=== PATIENT | female | born 1985 | race African-American/Black ===

== ENCOUNTER 2019-08-18 13:12 | Emergency (ER) | payer OTHER ==
[2019-08-18 13:37] VITALS: TEMP 97.9; BMI 37.8
--- NOTE | 2019-08-18 15:11 | PDOC ---
History of Present Illness - General Chief Complaint: Vaginal Bleeding Stated Complaint: 6 W PREG/VAG BLEEDING Time Seen by Provider: 08/18/19 14:59 History Source: Patient - History of Present Illness Timing/Duration: reports: intermittent Past History - Past Medical History Allergies/Adverse Reactions: Allergies Allergy/AdvReac Type Severity Reaction Status Date / Time No Known Allergies Allergy Verified 08/18/19 13:34 Home Medications: Ambulatory Orders Cephalexin Monohydrate [Keflex -] 500 mg PO BID #20 capsule 08/18/19 95/Iron Fum/Folic/Dha [ + Dha Combo Pack] 1 each PO DAILY #30 combo..pkg 08/18/19 - Psycho Social/Smoking Cessation Hx Smoking History: Never smoked Have you smoked in the past 12 months: No Information on smoking cessation initiated: No Hx Alcohol Use: No Drug/Substance Use Hx: No Review of Systems - Review of Systems Constitutional: No: Chills, Fever ABD/GI: Yes: Nausea. No: Vomiting, Abdominal cramping : No: Dysuria *Physical Exam - Vital Signs Last Vital Signs Temp Pulse Resp BP Pulse Ox 97.9 F 83 16 127/67 100 08/18/19 13:34 08/18/19 13:34 08/18/19 13:34 08/18/19 13:34 08/18/19 13:34 - Physical Exam General Appearance: Yes: Appropriately Dressed. No: Apparent Distress HEENT: positive: Normal Voice Neck: positive: Supple Respiratory/Chest: negative: Respiratory Distress Gastrointestinal/Abdominal: positive: Soft. negative: Tender Musculoskeletal: negative: CVA Tenderness Integumentary: positive: Dry, Warm Neurologic: positive: Fully Oriented, Alert, Normal Mood/Affect ED Treatment Course - LABORATORY CBC & Chemistry Diagram: 08/18/19 16:50 - RADIOLOGY Radiology Studies Ordered: Category Date Time Status TRANSVAGINAL US PREG [US] Stat Ultrasound 08/18/19 15:04 Ordered Medical Decision Making - Medical Decision Making 08/18/19 15:07 34 yo F, (s/p 1 stillborn and 1 spon AB), 6 weeks by dates, here with intermittent vaginal spotting for over 1 month. Was seen for her first appointment today and told to come to the ED. Denies any acute abdominal pain. Has been intermittently nauseous throughout the . No vomiting dysuria, fever or chills. see exam 1st trimester bleed r/o ectopic vs spon AB vs vag bleed in nl preg -jemma -T&S -UA -UD 08/18/19 16:22 Signed out to PANKAJ Nelson pending w/u Discharge - Discharge Information Problems reviewed: Yes Clinical Impression/Diagnosis: Vaginal bleeding in UTI (urinary tract infection) Qualifiers: Urinary tract infection type: acute cystitis Hematuria presence: with hematuria Qualified Code(s): N30.01 - Acute cystitis with hematuria Disposition: HOME - Additional Discharge Information Prescriptions: Cephalexin Monohydrate [Keflex -] 500 mg PO BID #20 capsule 95/Iron Fum/Folic/Dha [ + Dha Combo Pack] 1 each PO DAILY #30 combo..pkg - Follow up/Referral Referrals: Ninoska Kirkland MD [Primary Care Provider] - - Patient Discharge Instructions Patient Printed Discharge Instructions: DI for Hyperglycemia -- Adult Additional Instructions: drink plenty of fluids follow up with your doctor please take your insulin as prescribed. avoid high carb diet. Additional Instructions: * Please call your personal physician to report your Emergency Department visit and to report your progress, if any. * If there is no improvement in symptoms in 2 days call your physician. * Return to the Emergency Department for any worsening symptoms. - Post Discharge Activity Work/Back to School Note: Back to School
--- NOTE | 2019-08-18 16:32 | PDOC ---
*Physical Exam - Vital Signs Last Vital Signs Temp Pulse Resp BP Pulse Ox 97.9 F 83 16 127/67 100 08/18/19 13:34 08/18/19 13:34 08/18/19 13:34 08/18/19 13:34 08/18/19 13:34 - Physical Exam General Appearance: Yes: Appropriately Dressed Respiratory/Chest: positive: Lungs Clear, Normal Breath Sounds Extremity: positive: Normal Capillary Refill, Normal Inspection Integumentary: positive: Normal Color, Dry, Warm Neurologic: positive: Fully Oriented, Alert ED Treatment Course - LABORATORY CBC & Chemistry Diagram: 08/18/19 16:50 Medical Decision Making - Medical Decision Making patient UA + 1 leuks bacteria. will treat TVUS + IUP Beta > [id number] Discharge - Discharge Information Problems reviewed: Yes Clinical Impression/Diagnosis: Vaginal bleeding in UTI (urinary tract infection) Qualifiers: Urinary tract infection type: acute cystitis Hematuria presence: with hematuria Qualified Code(s): N30.01 - Acute cystitis with hematuria Disposition: HOME - Additional Discharge Information Prescriptions: Cephalexin Monohydrate [Keflex -] 500 mg PO BID #20 capsule 95/Iron Fum/Folic/Dha [ + Dha Combo Pack] 1 each PO DAILY #30 combo..pkg - Follow up/Referral Referrals: Ninoska Kirkland MD [Primary Care Provider] - - Patient Discharge Instructions Patient Printed Discharge Instructions: DI for Vaginal Bleeding During Additional Instructions: 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 * If there is no improvement in symptoms in 2 days call your physician. * Return to the Emergency Department for any worsening symptoms. - Post Discharge Activity Work/Back to School Note: Back to School
[2019-08-18 18:33] LABS: BASO % 0.7 % (0-2.0); EOS % 3.7 % (0-4.5); HEMATOCRIT 40.1 % (32.4-45.2); HEMOGLOBIN 13.2 GM/dL (10.7-15.3); LYMPH % 26.3 % (8-40); MCH 28.1 pg (25.7-33.7); MEAN CELL VOLUME 85.2 fl (80-96); MEAN PLT VOLUME 8.3 fl (7.5-11.1); MONO % 7.1 % (3.8-10.2); NEUT % 62.2 % (42.8-82.8); PLATELET COUNT 274 K/MM3 (134-434); RBC 4.71 M/mm3 (3.60-5.2); RDW 13.8 % (11.6-15.6)
[2019-08-18 20:10] LABS: EPI CELLS 15.8 /HPF (0-5/HPF); HYALINE CASTS 19 /lpf (0-8); PH,URINE 5.5 (5.0-8.0); URINE APPEARANCE CLOUDY; URINE BACTERIA 920.8 /hpf (NEGATIVE); URINE BILIRUBIN NEGATIVE (NEGATIVE); URINE COLOR YELLOW; URINE GLUCOSE (UA) NEGATIVE (NEGATIVE); URINE KETONE NEGATIVE (NEGATIVE); URINE LEUK ESTERASE 2+ (NEGATIVE); URINE NITRITE NEGATIVE (NEGATIVE); URINE PROTEIN NEGATIVE (NEGATIVE); URINE RBC 2 /hpf (0-4); URINE WBC 51 /hpf (0-5)
[2019-08-18 21:46] VITALS: BP 130/67; PULSE 80
== END 2019-08-18 21:49 | disposition home or self-care (01) ==
LOC: JER 13:12
DX: N30.01 Acute cystitis with hematuria (principal); N93.9 Abnormal uterine and vaginal bleeding, unspecified
CPT/HCPCS: 36415; 76817-TC; 81003; 84702; 85025; 86850; 86900; 86901; 99282-25

== ENCOUNTER 2020-03-19 23:35 | Inpatient (IN) | payer OTHER ==
--- NOTE | 2020-03-20 01:09 | PD.OB.PROG ---
Past Medical History - Primary Care Physician PCP:: Clari Welsh Documenting Provider Type: Attending - Admission Chief Complaint: 34 yrs 37.2/7 wks iup with previous c/sx3 , c/o cramping since afternoon at work, more frequent & intense now. pt states she has not been drinking enough fluids . c/o burning urination & itching around perineum History of Present Illness: pnc at [address] [place] [address] panel : 08/31/19 pap nilm, non 16/18 HR hpv pos , gc/ct neg. 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 Weeks Gestation by Dates: 37.2 ...EDC by Dates: 04/06/20 ...EDC by Sono: 04/06/20 Heme/Onc: Denies/None Infectious Disease: Other (h/o non HRHPV pos) Psych: Denies/None Musculoskeletal: Denies/None Rheumatology: Denies/None ENT: Denies/None Endocrine: Denies/None Dermatology: Denies/None - Past Surgical History Past Surgical History: Yes: None, (09/2006, 08/2008, ) Additional Surgical History: h/o bilateral breast reduction in 2007 [facility] hosp - Smoking History Smoking history: Never smoked Have you smoked in the past 12 months: No - Alcohol/Substance Use Hx Alcohol Use: No History of Substance Use: reports: None - Social History ADL: Independent Review of Systems - Review of Systems Constitutional: reports: No Symptoms Eyes: reports: No Symptoms HENT: reports: No Symptoms Neck: reports: No Symptoms Cardiovascular: reports: No Symptoms Respiratory: reports: No Symptoms Gastrointestinal: reports: No Symptoms Genitourinary: reports: Burning, Other (pruritis in perinel area) Breasts: reports: No Symptoms Reported Musculoskeletal: reports: No Symptoms Integumentary: reports: No Symptoms Neurological: reports: No Symptoms Endocrine: reports: No Symptoms Hematology/Lymphatic: reports: No Symptoms Psychiatric: reports: No Symptoms Pain Intensity: 5 Physical Exam - Obstetrical Vital Signs: Vital Signs Temperature 98.3 F 03/20/20 00:45 Pulse Rate 88 03/20/20 00:45 Respiratory Rate 20 03/20/20 00:45 Blood Pressure 117/69 03/20/20 00:45 O2 Sat by Pulse Oximetry (%) Selected Entries 03/20/20 02:38 Weight 223 lb Constitutional: Yes: No Distress, Obese Eyes: Yes: WNL HENT: Yes: WNL Neck: Yes: WNL Cardiovascular: Yes: WNL Lungs: Clear to auscultation Breast(s): Yes: Other (s/p bilat breast reduction surgery scars , scars are wide, Lt breast nipple not visualised,hypopigmentation around nipplein areolar area .) - Abdominal Exam/OB Fundal Height: 38 Number of Fetuses: Single Presentation: Vertex Contractions: Yes Regularity: Regular (2-4 min) Intensity: Mild Monitor Mode: External Heart Rate (range): 150 Heart Rate Location: [facility] Category: I Accelerations: Non-Uniform Decelerations: None - Vaginal Exam/OB Vaginal Exam Deferred: Yes Vaginal Bleeding: No Speculum Exam: No Dilatation (cm): close Effacement (%): unefface Amniotic Membrane Status: Intact Presentation: Vertex/Position Station: -3 - Physical Exam Musculoskeletal: Yes: WNL Extremities: Yes: WNL. No: Calf Tenderness Edema: LLE: 1+, RLE: 1+ Integumentary: Yes: WNL, Incision (pfannensteil scar), Other (eczematous dermatitis in both fingers) Deep Tendon Reflex Grade: Normal +2 ...Motor Strength: WNL Psychiatric: Yes: WNL - Labs Lab Results: Laboratory Tests 03/20/20 03/20/20 03/20/20 04:30 04:30 04:30 WBC 8.8 Hgb 12.4 Plt Count 213 D PT with INR 11.40 INR 0.97 PTT (Actin FS) 29.6 Sodium 140 Potassium 3.8 Chloride 110 H Carbon Dioxide 22 Anion Gap 8 BUN 3.6 L Creatinine 0.6 Random Glucose 93 Calcium 8.3 L Blood Type Antibody Screen 03/20/20 04:30 WBC Hgb Plt Count PT with INR INR PTT (Actin FS) Sodium Potassium Chloride Carbon Dioxide Anion Gap BUN Creatinine Random Glucose Calcium Blood Type O POSITIVE Antibody Screen Pending Problem List - Problems (1) with 37 weeks completed gestation Code(s): Z3A.37 - 37 WEEKS GESTATION OF (2) Previous section Code(s): Z98.891 - HISTORY OF UTERINE SCAR FROM PREVIOUS SURGERY (3) Threatened premature labor in third trimester Code(s): O47.03 - FALSE LABOR BEFORE 37 COMPLETED WEEKS OF GEST, THIRD TRI Assessment/Plan 34 yrs , 37.2 wks , previous c/s x3 with reg uc , no dilatation or effacement , possible threatened late PTL r/o uti , check U/A h/o BV pos 03/08/20 , declines receiving any meds for it Plan U/A IV hydration If UC cease, will discharge IF UC continues inspite of hydration will deliver by Repeat C/Section. she has signed papers for BTL pt continue to have UC , admit the patient
[2020-03-20 01:46] LABS: EPI CELLS 16 /uL (0-25.1); HYALINE CASTS 1 /uL (0-3.1); PH,URINE 8.5 (5.0-8.0); URINE APPEARANCE CLEAR; URINE BACTERIA 246 /uL (0-1359); URINE BILIRUBIN NEGATIVE (NEGATIVE); URINE COLOR YELLOW; URINE GLUCOSE (UA) NEGATIVE (NEGATIVE); URINE KETONE NEGATIVE (NEGATIVE); URINE LEUK ESTERASE TRACE (NEGATIVE); URINE NITRITE NEGATIVE (NEGATIVE); URINE PROTEIN NEGATIVE (NEGATIVE); URINE RBC 2 /uL (0-23.9); URINE WBC 5 /uL (0-25.8)
[2020-03-20] MEDS ORDERED: ELECTROLYTE-148 SOLN 500 ML IV ONE (04:33)
--- NOTE | 2020-03-20 04:33 | PN ---
Progress Note (short form) - Note Progress Note: patient continue to have UC in spite of hydration FHR 140-150 BPM , cat-1 plan .Admit pt notified r/b/a explained ,not ltd to injury bladder, bowel, ureter, adhesions, possible no access to tubes , hemorrhage , pt agrees repeat c/section btl consent & preop done Problem List - Problems (1) with 37 weeks completed gestation Code(s): Z3A.37 - 37 WEEKS GESTATION OF (2) Previous section Code(s): Z98.891 - HISTORY OF UTERINE SCAR FROM PREVIOUS SURGERY (3) Threatened premature labor in third trimester Code(s): O47.03 - FALSE LABOR BEFORE 37 COMPLETED WEEKS OF GEST, THIRD TRI
[2020-03-20 04:37] LABS: BASO % 0.6 % (0-2.0); EOS % 2.5 % (0-4.5); HEMATOCRIT 37.2 % (32.4-45.2); HEMOGLOBIN 12.4 GM/dL (10.7-15.3); MCHC 33.4 g/dl (32.0-36.0); MEAN CELL VOLUME 83.8 fl (80-96); MEAN PLT VOLUME 6.8 fl (7.5-11.1); MONO % 12.9 % (3.8-10.2); PLATELET COUNT 213 K/MM3 (134-434); RBC 4.44 M/mm3 (3.60-5.2); RDW 14.4 % (11.6-15.6); WHITE BLOOD COUNT 8.8 K/mm3 (4.0-10.0)
[2020-03-20] MEDS ORDERED: CITRIC ACID/SODIUM CITRATE 30 ML UNIT-DOSE CUP PO ONE (04:40)
[2020-03-20] MEDS ORDERED: ELECTROLYTE-148 SOLN 1,000 ML IV SCH (04:45)
[2020-03-20 04:46] LABS: INR 0.97 (0.83-1.09); PROTHROMBIN TIME (PATIENT) 11.4 SEC (9.7-13.0)
[2020-03-20 04:49] LABS: ACTIVATED PTT 29.6 SECONDS (25.2-36.5)
[2020-03-20 05:03] LABS: BLOOD UREA NITROGEN 3.6 mg/dL (7-18); CALCIUM 8.3 mg/dL (8.5-10.1); CREATININE 0.6 mg/dL (0.55-1.3); POTASSIUM 3.8 mmol/L (3.5-5.1)
--- NOTE | 2020-03-20 05:17 | HP ---
Past Medical History - Primary Care Physician PCP:: Clari Welsh - Admission Chief Complaint: 34 yrs , 37.2 wks , previous c/sx3 , continue to have UC inspite of hydration , pt requests for repeat c/section & voluntory sterilization History of Present Illness: see ob progress note pnc at [address] [place] [address] panel : 08/31/19 pap nilm, non 16/18 HR hpv pos , gc/ct neg. 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 Weeks Gestation by Dates: 37.2 ...EDC by Dates: 04/06/20 ...EDC by Sono: 04/06/20 Heme/Onc: Yes: Other (none) Infectious Disease: Yes: Other (non 16/18 HR HPV Pos) Psych: No: Addictions, Anxiety, Bipolar, Depression, Panic, Psychosis, Schizophrenia, Other ENT: Yes: Other (none) Endocrine: Yes: Other (naveed) - Past Surgical History Past Surgical History: Yes: None, (09/2006, 08/2008, ) Hx Myomectomy: No Hx Transabdominal Cerclage: No Additional Surgical History: h/o bilateral breast reduction in 2007 [facility] hosp - Smoking History Smoking history: Never smoked Have you smoked in the past 12 months: No - Alcohol/Substance Use Hx Alcohol Use: No History of Substance Use: reports: None - Social History ADL: Independent Home Medications - Allergies Allergies/Adverse Reactions: Allergies Allergy/AdvReac Type Severity Reaction Status Date / Time No Known Allergies Allergy Verified 08/18/19 13:34 - Home Medications Home Medications: Ambulatory Orders 95/Iron Fum/Folic/Dha [ + Dha Combo Pack] 1 each PO DAILY #30 combo..pkg 08/18/19 Review of Systems - Review of Systems Eyes: reports: No Symptoms HENT: reports: No Symptoms Neck: reports: No Symptoms Cardiovascular: reports: No Symptoms Respiratory: reports: No Symptoms Gastrointestinal: reports: No Symptoms Genitourinary: reports: Burning, Other (perineal pruritis) Breasts: reports: Other (s/p bilateral breast reduction surgery) Musculoskeletal: reports: No Symptoms Integumentary: reports: Erythema Neurological: reports: No Symptoms Endocrine: reports: No Symptoms Hematology/Lymphatic: reports: No Symptoms Psychiatric: reports: No Symptoms Pain Intensity: 5 Physical Exam - Maternity Vital Signs: Vital Signs Temperature 98.3 F 03/20/20 00:45 Pulse Rate 88 03/20/20 00:45 Respiratory Rate 20 03/20/20 00:45 Blood Pressure 117/69 03/20/20 00:45 O2 Sat by Pulse Oximetry (%) Constitutional: Yes: No Distress, Obese Eyes: Yes: WNL HENT: Yes: WNL Neck: Yes: WNL Cardiovascular: Yes: WNL Breast(s): Yes: Other (s/p breast reduction surgery scars . rt nipple seen Lt breast nipple not visualized, hypopigmentation around nipple area on lt breast.) - Abdominal Exam/OB Fundal Height: 38 Number of Fetuses: Single Presentation: Vertex Contractions: Yes Regularity: Regular Intensity: Mild/Mod (3-4 min) Monitor Mode: External Heart Rate (range): 140-150 Heart Rate Location: [facility] Category: I Accelerations: Non-Uniform Decelerations: None - Vaginal Exam/OB Vaginal Bleeding: No Speculum Exam: No Dilatation (cm): close Effacement (%): unefface Amniotic Membrane Status: Intact Presentation: Vertex/Position Station: -3 - Physical Exam Musculoskeletal: Yes: WNL Extremities: Yes: WNL. No: Calf Tenderness Edema: LLE: 1+, RLE: 1+ Integumentary: Yes: Incision (pfannensteil scar), Other (eczematous dermatitis on both hands fingers) Deep Tendon Reflex Grade: Normal +2 ...Motor Strength: WNL Psychiatric: Yes: WNL - Labs Lab Results: CBC, BMP 03/20/20 04:30 03/20/20 04:30 Laboratory Tests 03/20/20 03/20/20 04:30 04:30 PT with INR 11.40 INR 0.97 PTT (Actin FS) 29.6 Blood Type O POSITIVE Antibody Screen Negative Hemorrhage Risk Assessment - Risk Factors Medium Risk Factors: Yes: Prior , uterine surgery,or multiple laparotomies Risk Score: 1 Risk Level: Medium Risk Problem List - Problems (1) with 37 weeks completed gestation Code(s): Z3A.37 - 37 WEEKS GESTATION OF (2) Previous section Code(s): Z98.891 - HISTORY OF UTERINE SCAR FROM PREVIOUS SURGERY (3) Threatened premature labor in third trimester Code(s): O47.03 - FALSE LABOR BEFORE 37 COMPLETED WEEKS OF GEST, THIRD TRI (4) Multiparity, grand, in labor and delivery Code(s): O09.40 - SUPERVISION OF W GRAND MULTIPARITY, UNSP TRIMESTER Assessment/Plan 34 yrs , 37.2 wks , previous c/s x3 with reg uc , no dilatation or effacement , possible threatened late PTL r/o uti , check U/A h/o BV pos 03/08/20 , declines receiving any meds for it Plan U/A IV hydration If UC cease, will discharge IF UC continues in spite of hydration will deliver by Repeat C/Section. she has signed papers for BTL pt continue to have UC , admit the patient see complete OB progress note for admission plan repeat c/section BTL
[2020-03-20] MEDS ORDERED: morphine SULFATE/PF 0.5 MG/ML (2cc Syringe - QUVA) ONE (05:38)
[2020-03-20 05:39] VITALS: BMI 37.0
[2020-03-20] MEDS ORDERED: AMPICILLIN SODIUM 2 GM VIAL ONE (05:57)
[2020-03-20] MEDS ORDERED: AMPICILLIN - 2 GM in SODIUM CHLORIDE 100 ML IVPB ONE (06:00)
[2020-03-20] MEDS ORDERED: OXYTOCIN 20 UNITS in 0.9% NS 40 UNIT/2,000 ML INFUS.BAG IV ONE (07:48)
--- NOTE | 2020-03-20 08:26 | PN ---
Progress Note (short form) - Note Progress Note: we were ready to take the pt to OR at 5.30 AM , we were bumped by another emergency c/section due to non reassuring FHR So c/s was pending until OR available uc 2-4 min dysfunctional. fhr 130-140 cat-1 pt taken to OR at 8.25 AM Problem List - Problems (1) with 37 weeks completed gestation Code(s): Z3A.37 - 37 WEEKS GESTATION OF (2) Previous section Code(s): Z98.891 - HISTORY OF UTERINE SCAR FROM PREVIOUS SURGERY (3) Pain during labor Code(s): O99.89 - OTH DISEASES AND CONDITIONS COMPL PREG/CHLDBRTH; R52 - PAIN, UNSPECIFIED
[2020-03-20] MEDS ORDERED: MIDAZOLAM HCL 2 MG/2 ML SINGLE DOSE VIAL ONE (09:10)
[2020-03-20 09:28] LABS: CORD PCO2 64.8 mmHg (30-78)
[2020-03-20 09:29] LABS: CORD BASE EXCESS -1.1 mmol/L (0-2); CORD HCO3 26.8 mmHg (20-29); CORD PCO2 58.5 mmHg (30-78); CORD pH 7.279 (7.14-7.44)
[2020-03-20] MEDS ORDERED: METHYLERGONOVINE MALEATE 0.2 MG/1 ML AMP IM PRN (10:06)
[2020-03-20] MEDS ORDERED: IBUPROFEN 800 MG/8 ML IJ IVPB PRN (10:06)
--- NOTE | 2020-03-20 10:18 | OP ---
Operative Note - Note: Operative Date: 03/20/20 Pre-Operative Diagnosis: 37.2 weks , previous c/sx3 in labor & multiparity Operation: Repeat LFTC/Section BTL Findings: 8.51 AM, baby Boy, vx ROT, 9/9 , 7'5" . financial service professional in the room meconium stained light to moderate , cord around head both tubes & ovaries normal. mid portion of ampular region of the tubes ligated & cut by modified mary method Surgeon: Clari Welsh Material Requirements Planning Manager: Sebastian Glover Anesthesiologist/COMPRESSION MOLDING MACHINE SETTER: Ignacio Swanson Anesthesia: Spinal Specimens Removed: cord segment for cord gas. cord blood. placenta Estimated Blood Loss (mls): 1,000 Drains, Volume Out (mls): 200 (mary color , bach output) Fluid Volume Replaced (mls): 1,000 Operative Report Dictated: Yes
--- NOTE | 2020-03-20 10:36 | PN ---
Delivery - Delivery Section: Repeat, Low Flap Transverse (Indication :Previous c/sx3 Multiparity in labor) Type of Anesthesia: Spinal Episiotomy/Laceration: None EBL (cc): 1,000 (bach output 200 ml mary color ) Delivery, Single - Stages of Labor Date 1st Stage Initiatied: 03/20/20 Time 1st Stage Initiated: 02:30 Date of Delivery: 03/20/20 Time of Delivery: 08:51 Time Placenta Delivered: 08:53 Placenta: Yes: Manual Removal, Uterine Exploration - Condition of Infant Supervisor Sterile Processing/Dipping Machine Operator Present: Yes Name: Brenda Sorto Infant Gender: Male Weight: 7 lb 5 oz Position: Right, OT (cord around the head) Total Hours ROM (Hrs/Mins): 1 min meconilum moderate - 1 Minute Total Score: 9 5 Minutes Total Score: 9 - [place] Feeding Plan Initial Plan: Elected not to breastfeed exclusively throughout hospitalization Remarks - Remarks Remarks: 34 yrs , 37.2 weeks , previous c/s x3 in labor GBS pos PNC at [address] [place] [address] UC did not stop after Iv hydration hence decision to deliver the patient by rc/s taken Iv Ampicillin 2gm ivpb one dose given In OR 2 gm IV Ancef ivpb given intraop course uneventful
[2020-03-20] MEDS ORDERED: ONDANSETRON 4 MG/2 ML VIAL IVPUSH PRN ×2 (11:05→11:06)
[2020-03-20] MEDS ORDERED: morphine SULFATE/PF 0.5 MG/ML (2cc Syringe - QUVA) EP ONE (11:06)
[2020-03-20] MEDS ORDERED: ACETAMINOPHEN INJECTION 100 ML IVPB ONE (13:32)
[2020-03-20] MEDS ORDERED: ACETAMINOPHEN 1000 MG/100 ML VIAL (NON FORMULARY) IVPB ONE (14:00)
--- NOTE | 2020-03-20 14:04 | OP ---
DATE OF CONSULTATION: 03/20/2020 PREOPERATIVE DIAGNOSIS: A 37.2 weeks, previous section x3, in labor, and multiparity. POSTOPERATIVE DIAGNOSIS: A 37.2 weeks, previous section x3, in labor, and multiparity. OPERATION DONE: Repeat low flap transverse section, bilateral tubal ligation. SURGEON: Clari Welsh MD CAMERA TECHNICIAN SURGEON: EROS Lee ANESTHESIOLOGIST: Ignacio Swanson MD MARINE DIESEL TECHNICIAN: Brenda Sorto FINDINGS: This is a 34-year-old 5, para 2-1-1-2, history of previous C-sections, history of 1 at 32 weeks, a stillborn baby, and patient's EDC is April 06. She came at 37.2 weeks with contractions. In spite of giving IV hydration, contractions did not stop. Patient continued to have contractions and getting stronger, though there was no change in the cervix. It was closed. So, the patient was taken for surgery, and she also requests for voluntary sterilization. PROCEDURE: Abdomen was shaved, prepped. Bourgeois catheter was placed. She was taken to the operating room table, and spinal anesthesia was given. She was placed in the supine position with a tilt to the left. Abdomen was painted and draped in usual manner, and then the Pfannenstiel incision was made through a previous scar in skin and subcutaneous tissue. Anterior rectus sheath was incised transversely. Bleeding points were clamped and cauterized. Rectus muscle was from the rectus sheath. Parietal peritoneum was opened vertically. There were no adhesions, and the lower uterine segment was isolated. It was incised transversely. Amniotic fluid was meconium stained, and cord was around the baby's head, which was released, and the baby was delivered at 8:51 a.m. from ROT position. Apgars were 9/9. Cord was clamped/cut. Cord segment was sent for the cord blood gases. Cord blood was collected. Placenta was removed completely with the membranes intraoperatively. Uterus was soft, and then anesthesiologist was asked to give IM Methergine intraoperatively and continued IV Pitocin 20 units. Then, the uterine cavity was cleaned, and uterine incision was closed with 2 layers with Biosyn 0 suture. At this point, the bladder was intact. Urine in the Bourgeois bag was mary color. Both tubes and ovaries were normal. Then, first the left side then the right side tube was ligated doubly with 2-0 plain catgut, and the portion of the tube above the ligature was cut, and the endosalpinx was cauterized. Same procedure done on both sides, and the portion of the tubes was sent for the pathology examination. Incidentally, open LigaSure was not available, so salpingectomy could not be done. The uterus was placed back into the peritoneal cavity. Sponge, instrument, needle count was correct. Irrigation was done. Again, the surgical site on the tubes from both sides was identified. Hemostasis was verified once again, and then closure of the abdomen was done. Posterior rectus sheath and the parietal peritoneum was closed together with Vicryl O suture. Care was taken the bladder was displaced before taking the sutures, and then INTERCEED was placed in the incision area. The muscles were approximated together with Vicryl 0 suture underneath the rectus sheath flap. Hemostasis was verified. Skin was mobilized from the rectus sheath flaps from adherent scar, and then anterior rectus sheath was closed with a Vicryl 0 suture. Continuous sutures were taken. The subcutaneous tissue was approximated with 2-0 Vicryl suture. Continuous suture was taken. Then, the skin was approximated with dano. Pressure dressing was given, then the blood clots were removed from the vagina, and the irrigation with the Betadine was done. Patient tolerated the procedure well, and she was transferred to the recovery room in stable condition. Estimated blood loss was 1000 mL. Intraoperative IV fluid 1000 mL was given, and she had 200 mL of mary-colored urine output in the OR. She received 2 g of IV Ancef intraoperatively. Jayne [id number]
[2020-03-20] MEDS: OXYTOCIN 20 UNITS in 0.9% NS 20 UNIT/1,000 ML INFUS.BAG IV SCH ×2 (14:19→22:46)
[2020-03-20] MEDS: LACTATED RINGERS SOLUTION 1,000 ML IV SCH ×2 (14:30→19:04)
[2020-03-20] MEDS: CEFAZOLIN 1 GM/D5W 1 GM/50 ML BAG IVPB SCH (17:56)
[2020-03-20] MEDS: ENOXAPARIN NA (PORCINE) 40 MG/0.4 ML DISP.SYRIN SQ SCH (21:45)
[2020-03-21] MEDS: CEFAZOLIN 1 GM/D5W 1 GM/50 ML BAG IVPB SCH ×2 (01:07→09:02)
[2020-03-21] MEDS: IBUPROFEN 600 MG TABLET (FP) PO PRN ×3 (04:38→21:31)
[2020-03-21] MEDS: ACETAMINOPHEN 325 MG TABLET (FP) PO PRN ×5 (04:38→21:32)
[2020-03-21] MEDS: SIMETHICONE 80 MG TAB.CHEW (FP) PO PRN ×5 (04:39→21:31)
--- NOTE | 2020-03-21 06:35 | PN ---
Post Progress Note Type of Delivery: Repeat C/S Vital Signs: Vital Signs Temperature 98.1 F 03/21/20 06:00 Pulse Rate 90 03/21/20 06:00 Respiratory Rate 18 03/21/20 06:00 Blood Pressure 122/74 03/21/20 06:00 O2 Sat by Pulse Oximetry (%) 98 03/21/20 06:00 Uterus: Yes: Fundus below umbilicus Incision: Yes: Dressing dry and intact Abdomen/GI: Yes: Abdomen soft Lochia: Yes: Rubra Perineum: Yes: Intact Activity: Ambulating - Labs Labs: CBC WBC 8.8 K/mm3 (4.0-10.0) 03/20/20 04:30 RBC 4.44 M/mm3 (3.60-5.2) 03/20/20 04:30 Hgb 12.4 GM/dL (10.7-15.3) 03/20/20 04:30 Hct 37.2 % (32.4-45.2) 03/20/20 04:30 MCV 83.8 fl (80-96) 03/20/20 04:30 MCH 28.0 pg (25.7-33.7) 03/20/20 04:30 MCHC 33.4 g/dl (32.0-36.0) 03/20/20 04:30 RDW 14.4 % (11.6-15.6) 03/20/20 04:30 Plt Count 213 K/MM3 (134-434) D 03/20/20 04:30 MPV 6.8 fl (7.5-11.1) L D 03/20/20 04:30 Absolute Neuts (auto) 5.5 K/mm3 (1.5-8.0) 03/20/20 04:30 Neutrophils % 62.0 % (42.8-82.8) 03/20/20 04:30 Lymphocytes % 22.0 % (8-40) 03/20/20 04:30 Monocytes % 12.9 % (3.8-10.2) H D 03/20/20 04:30 Eosinophils % 2.5 % (0-4.5) 03/20/20 04:30 Basophils % 0.6 % (0-2.0) 03/20/20 04:30 Nucleated RBC % 0 % (0-0) 03/20/20 04:30 Assessment/Plan 34yo s/p RLTCS, BTL, POD#1 Routine PP care, po pain control D/C [place] OOB, ambulate F/U AM labs D/C to home POD#3/4 Alphonse Zamora MD
[2020-03-21] MEDS: OXYTOCIN 20 UNITS in 0.9% NS 20 UNIT/1,000 ML INFUS.BAG IV SCH (07:32)
[2020-03-21] MEDS: ENOXAPARIN NA (PORCINE) 40 MG/0.4 ML DISP.SYRIN SQ SCH (09:11)
[2020-03-21] MEDS: oxyCODONE HCL 5 MG TABLET PO PRN ×4 (09:12→21:32)
[2020-03-21] MEDS: PRENATAL VITAMINS W/ FOLIC ACID TABLET (FP) PO SCH (10:00)
[2020-03-21 10:02] LABS: BASO % 0.3 % (0-2.0); EOS % 1.5 % (0-4.5); HEMATOCRIT 35.2 % (32.4-45.2); HEMOGLOBIN 11.4 GM/dL (10.7-15.3); LYMPH % 11.2 % (8-40); MCH 27.1 pg (25.7-33.7); MCHC 32.3 g/dl (32.0-36.0); MEAN CELL VOLUME 83.7 fl (80-96); MEAN PLT VOLUME 6.8 fl (7.5-11.1); MONO % 11.1 % (3.8-10.2); NEUT % 75.9 % (42.8-82.8); PLATELET COUNT 220 K/MM3 (134-434); RDW 14.5 % (11.6-15.6); WHITE BLOOD COUNT 13.4 K/mm3 (4.0-10.0)
[2020-03-21] MEDS ORDERED: BISACODYL 10 MG SUPP.RECT RC PRN (10:06)
[2020-03-21] MEDS: LACTATED RINGERS SOLUTION 1,000 ML IV SCH (19:55)
[2020-03-21] MEDS: FERROUS SO4 325 MG TABLET (FP) PO SCH (21:31)
[2020-03-21] MEDS: SENNOSIDES/DOCUSATE COMBO (SENNA PLUS) TABLET (UD) PO PRN (21:31)
[2020-03-22] MEDS: oxyCODONE HCL 5 MG TABLET PO PRN ×5 (01:26→22:29)
[2020-03-22] MEDS: ACETAMINOPHEN 325 MG TABLET (FP) PO PRN ×6 (01:26→22:27)
[2020-03-22] MEDS: SIMETHICONE 80 MG TAB.CHEW (FP) PO PRN ×5 (01:27→22:30)
[2020-03-22] MEDS: IBUPROFEN 600 MG TABLET (FP) PO PRN ×6 (01:27→22:28)
--- NOTE | 2020-03-22 06:48 | PN ---
Progress Note (short form) - Note Progress Note: pod 2 s/p repeat c/s, doing well, ambulating . passing gas Last Vital Signs Temp Pulse Resp BP Pulse Ox 98.4 F 91 H 18 118/80 98 03/21/20 22:00 03/21/20 22:00 03/21/20 22:00 03/21/20 22:00 03/21/20 22:00 CBC, BMP 03/21/20 09:10 03/20/20 04:30 abdomen soft, no distension, no cva uterus firm, non tender lochia mild plan ambulate cbc in am plan for d/c home in am
[2020-03-22] MEDS: FERROUS SO4 325 MG TABLET (FP) PO SCH ×2 (09:37→17:36)
[2020-03-22] MEDS: PRENATAL VITAMINS W/ FOLIC ACID TABLET (FP) PO SCH (09:40)
[2020-03-22] MEDS: ENOXAPARIN NA (PORCINE) 40 MG/0.4 ML DISP.SYRIN SQ SCH (09:41)
--- NOTE | 2020-03-22 13:38 | PATH ---
Surgical Pathology Report Patient Name: MC MONTES [facility]. Rec. 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 Specimen(s) Received A: PLACENTA B: FALLOPIAN TUBE, PORTION, RIGHT C: FALLOPIAN TUBE, PORTION, LEFT Clinical History , 37.2 weeks gestation 3 previous C-sections (1 stillborn at 32 weeks), 1-induced , breast reduction Final Diagnosis A. PLACENTA, SECTION: 499 G THIRD TRIMESTER PLACENTA WITH TRIVASCULAR UMBILICAL CORD AND UNREMARKABLE PLACENTAL MEMBRANES. B. FALLOPIAN TUBE, PORTION, RIGHT, PARTIAL EXCISION: FULL LUMINAL PORTION OF UNREMARKABLE FALLOPIAN TUBE. C. FALLOPIAN TUBE, PORTION, LEFT, PARTIAL EXCISION: FULL LUMINAL PORTION OF UNREMARKABLE FALLOPIAN TUBE. Electronically Signed Lilia Lawton M.D. Gross Description A. The specimen is received fresh labeled placenta and is a 499 gram, 20.0 x 18.0 x 2.2 cm. placenta with attached membranes and umbilical cord. The attached membranes are wilkins, translucent with focal opacities and insert marginally. The umbilical cord measures 17 cm. in length and averages 1.4 cm. in diameter. The cord inserts eccentrically, 6 cm. to the nearest margin. No true knots or strictures are identified. Cut surface of the umbilical cord reveals 3 vessels. The surface is agustin-blue with minimal fibrin deposition and appropriate caliber vessels. The maternal surface is red-brown with focal defects. Sectioning reveals red-brown, spongy parenchyma. No lesions are identified. Tub Operator sections are submitted in three cassettes as follows: 1- membrane rolls and umbilical cord; 2-3- full thickness sections of placenta. B. Received in formalin labeled "right portion of fallopian tube," is a 1.5 cm in length portion of fallopian tube. No fimbria are present. The outer surface is wilkins-pink and smooth. Sectioning reveals an unremarkable lumen. Tub Operator sections are submitted in one cassette. C. Received in formalin labeled "left portion of fallopian tube," is a 1.7 cm in length portion of fallopian tube. No fimbria are present. The outer surface is wilkins-pink and smooth. Sectioning reveals an unremarkable lumen. Tub Operator sections are submitted in one cassette. 03/21/2020 [facility]03/21/2020
[2020-03-22] MEDS: SENNOSIDES/DOCUSATE COMBO (SENNA PLUS) TABLET (UD) PO PRN (22:29)
[2020-03-23] MEDS: IBUPROFEN 600 MG TABLET (FP) PO PRN ×3 (02:29→10:57)
[2020-03-23] MEDS: ACETAMINOPHEN 325 MG TABLET (FP) PO PRN ×3 (02:30→10:57)
[2020-03-23] MEDS: oxyCODONE HCL 5 MG TABLET PO PRN ×2 (02:30→06:28)
[2020-03-23] MEDS: SIMETHICONE 80 MG TAB.CHEW (FP) PO PRN ×3 (02:31→10:57)
[2020-03-23] MEDS: FERROUS SO4 325 MG TABLET (FP) PO SCH (07:56)
[2020-03-23] MEDS: ENOXAPARIN NA (PORCINE) 40 MG/0.4 ML DISP.SYRIN SQ SCH (09:47)
[2020-03-23] MEDS: PRENATAL VITAMINS W/ FOLIC ACID TABLET (FP) PO SCH (09:47)
[2020-03-23 10:09] LABS: BASO % 0.6 % (0-2.0); EOS % 3.5 % (0-4.5); HEMATOCRIT 31.4 % (32.4-45.2); HEMOGLOBIN 10.4 GM/dL (10.7-15.3); LYMPH % 20.7 % (8-40); MCH 27.9 pg (25.7-33.7); MCHC 33.3 g/dl (32.0-36.0); MEAN CELL VOLUME 83.8 fl (80-96); MEAN PLT VOLUME 6.6 fl (7.5-11.1); MONO % 8.8 % (3.8-10.2); NEUT % 66.4 % (42.8-82.8); PLATELET COUNT 243 K/MM3 (134-434); RBC 3.74 M/mm3 (3.60-5.2); RDW 14.5 % (11.6-15.6); WHITE BLOOD COUNT 8.7 K/mm3 (4.0-10.0)
--- NOTE | 2020-03-23 10:46 | DS ---
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 Vital Signs: Vital Signs Temperature 98.4 F 03/22/20 22:00 Pulse Rate 81 03/22/20 22:00 Respiratory Rate 18 03/22/20 22:00 Blood Pressure 128/73 03/22/20 22:00 O2 Sat by Pulse Oximetry (%) 98 03/22/20 09:58 Constitutional: Yes: Well Nourished Eyes: Yes: Conjunctiva Clear HENT: Yes: Atraumatic Neck: Yes: Supple Cardiovascular: Yes: Regular Rate and Rhythm Respiratory: Yes: Regular Gastrointestinal: Yes: Normal Bowel Sounds Pelvis: Yes: WNL External Genitalia: Yes: Normal Vaginal Exam: Yes: Normal Cervix: Yes: Normal Uterus: Yes: Firm Wound/Incision: Yes: Well Approximated, [place] Intact Neurological: Yes: Alert, Oriented ...Motor Strength: WNL Psychiatric: Yes: Alert, Oriented Labs: CBC, BMP 03/23/20 09:46 03/20/20 04:30 Delivery - Delivery Section: Repeat, Low Flap Transverse (Indication :Previous c/sx3 Multiparity in labor) Type of Anesthesia: Spinal Episiotomy/Laceration: None EBL (cc): 1,000 (bach output 200 ml mary color ) Delivery, Single - Stages of Labor Date 1st Stage Initiatied: 03/20/20 Time 1st Stage Initiated: 02:30 Date of Delivery: 03/20/20 Time of Delivery: 08:51 Time Placenta Delivered: 08:53 Placenta: Yes: Manual Removal, Uterine Exploration - Condition of Care Trainer/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 Present: Yes Name: Brenda Sorto Gender: Male Weight: 7 lb 5 oz Position: Right, OT (cord around the head) Total Hours ROM (Hrs/Mins): 1 min meconilum moderate - 1 Minute Total Score: 9 5 Minutes Total Score: 9 - Feeding Plan Initial Plan: Elected not to breastfeed exclusively throughout hospitalization Discharge Summary Problems reviewed: Yes Reason For Visit: LABOR ADMIT Current Active Problems Delivery by emergency section (Acute) Multiparity, grand, in labor and delivery (Acute) Pain during labor (Acute) with 37 weeks completed gestation (Acute) Previous section (Acute) Procedures: Principal: Repeat Hospital Course: Routine post op care Health Concerns: None Plan of Treatment: Ambulation Analgesia as needed F/U in clinic in 1 week Condition: Stable - Instructions Diet, Activity, Other Instructions: Post Instructions DIET: Continue good diet high in protein, calcium, and iron rich foods. Drink at least eight (8) glasses of water daily in addition to other fluids. ___ Regular diet MEDICATIONS: Continue vitamins and iron as previously directed. Motrin and Tylenol may be taken for minor discomfort. ACTIVITY: Mild to moderate exercise may be started in two (2) weeks. Take frequent rest periods. Resume normal activity after six (6) week check up. WOUND CARE OF OPERATIVE SITE: Continue use of perineal bottle until vaginal discharge stops. Keep area clean. Shower daily. Keep abdominal wound dry. Report any drainage or redness to physician. Tub baths, tampons and douches are not permitted for [address] Breast feeding & or Bottle feeding BREAST CARE: (For those that are not ): If engorgement occurs: Wear tight fitting bra. Take Tylenol or Motrin for pain. Apply cold packs (ice in bags to each breast ) FAMILY PLANNING: There are many control alternatives to pursue and they should be discussed at your first office visit. You may resume sexual activity after your six (6) week check up. (Remember, breast feeding is not a contraceptive) NEXT PHYSICIAN APPOINTMENT: Be certain to call for a one (1 ) week appointment, unless otherwise directed. RTC Wednesday for dano removal . call [phone] Call Clinic or got to Emergency Dept if you have any of the following: Heavy vaginal bleeding Painful urination Leg pain Unusual odor noted to vaginal bleeding High fever Red streaking noted on breast Referrals: Clari Welsh MD [Staff Physician] - Ninoska Kirkland MD [Primary Care Provider] - Disposition: HOME - Home Medications Comprehensive Discharge Medication List: Ambulatory Orders 95/Iron Fum/Folic/Dha [ + Dha Combo Pack] 1 each PO DAILY #30 combo..pkg 08/18/19 Acetaminophen [Tylenol .Regular Strength -] 500 mg PO Q4H PRN #30 tablet 03/21/20 Ferrous Sulfate [Feosol] 325 mg PO DAILY #30 tab 03/21/20 Ibuprofen [Motrin -] 600 mg PO Q4H PRN #30 tablet 09/03/20 Vitamins (Sjr) - 1 tab PO DAILY #30 tablet 03/21/20 oxyCODONE HCL [Roxicodone -] 5 mg PO Q4H PRN #20 tablet MDD 30mg 03/21/20
[2020-03-23 11:12] VITALS: BP 132/84; PULSE 90; TEMP 98.2
== END 2020-03-23 12:40 | disposition home or self-care (01) | DRG 540 ==
LOC: JDEL 23:35 → JLDR 03-20 04:00 → J3N 03-20 14:35
PROVIDERS: ADMIT Obstetrics & Gynecology; ATTEND Obstetrics & Gynecology
PROC: 10D00Z1 Extraction of Products of Conception, Low, Open Approach (ICD-10-PCS; principal; 2020-03-20)
PROC: 0UL70ZZ Occlusion of Bilateral Fallopian Tubes, Open Approach (ICD-10-PCS; 2020-03-20)
DX: O82 Encounter for cesarean delivery without indication (principal); O47.03 False labor before 37 completed weeks of gestation, third trimester; O99.824 Streptococcus B carrier state complicating childbirth; O69.81X0 Labor and delivery complicated by cord around neck, without compression, not applicable or unspecified; O77.0 Labor and delivery complicated by meconium in amniotic fluid; Z98.891 History of uterine scar from previous surgery; Z86.19 Personal history of other infectious and parasitic diseases; Z3A.37 37 weeks gestation of pregnancy; Z37.0 Single live birth; L30.9 Dermatitis, unspecified; L29.3 Anogenital pruritus, unspecified; Z30.2 Encounter for sterilization
CPT/HCPCS: 36415; 36600; 80048; 81003; 82803; 85025; 85610; 85730; 86780; 86850; 86900; 86901; 88302-TC; 88307-TC; J0131; U0003

== ENCOUNTER 2020-05-20 13:48 | Emergency (ER) | payer OTHER ==
[2020-05-20] MEDS ORDERED: ACETAMINOPHEN 1000 MG/100 ML VIAL (NON FORMULARY) IVPB ONE (13:55)
[2020-05-20] MEDS ORDERED: SODIUM CHLORIDE 1,000 ML IV STA (13:56)
[2020-05-20 13:57] VITALS: BMI 36.6
--- NOTE | 2020-05-20 13:59 | PDOC ---
Rapid Medical Evaluation Time Seen by Provider: 05/20/20 13:55 Medical Evaluation: Allergies Allergy/AdvReac Type Severity Reaction Status Date / Time No Known Allergies Allergy Verified 05/20/20 13:52 05/20/20 13:56 CC: heavy vag bleeding x 3 days, mild lighheadedness, unsure if had a cycle since csection 04/07/2020. Denies fibroids or menstruation d/o Exam: vss, Plan: labs, ivf, urine, route of u/s to be determined by provider once pelvic is completed Discharge Disposition - Diagnosis Episode of heavy vaginal bleeding - Referrals - Patient Instructions - Post Discharge Activity
[2020-05-20] MEDS ORDERED: ACETAMINOPHEN INJECTION 100 ML IVPB ONE (14:24)
[2020-05-20 15:13] LABS: EPI CELLS 8 /uL (0-25.1); HCG,QUALITATIVE URINE Negative; HYALINE CASTS 2 /uL (0-3.1); PH,URINE 6.5 (5.0-8.0); URINE APPEARANCE CLEAR; URINE BACTERIA 24 /uL (0-1359); URINE BILIRUBIN NEGATIVE (NEGATIVE); URINE COLOR ORANGE; URINE GLUCOSE (UA) NEGATIVE (NEGATIVE); URINE KETONE NEGATIVE (NEGATIVE); URINE LEUK ESTERASE TRACE (NEGATIVE); URINE NITRITE NEGATIVE (NEGATIVE); URINE PROTEIN 3+ (NEGATIVE); URINE RBC 24 /uL (0-23.9); URINE UROBILINOGEN 0.2 mg/dL (0.2-1.0); URINE WBC 3 /uL (0-25.8)
[2020-05-20 15:18] LABS: BASO % 1.1 % (0-2.0); EOS % 4.1 % (0-4.5); HEMATOCRIT 40.2 % (32.4-45.2); HEMOGLOBIN 12.7 GM/dL (10.7-15.3); LYMPH % 39.5 % (8-40); MCH 25.9 pg (25.7-33.7); MCHC 31.7 g/dl (32.0-36.0); MEAN CELL VOLUME 81.7 fl (80-96); MEAN PLT VOLUME 7.3 fl (7.5-11.1); MONO % 7.8 % (3.8-10.2); NEUT % 47.5 % (42.8-82.8); PLATELET COUNT 316 K/MM3 (134-434); RBC 4.92 M/mm3 (3.60-5.2); RDW 14.4 % (11.6-15.6); WHITE BLOOD COUNT 6.2 K/mm3 (4.0-10.0)
--- NOTE | 2020-05-20 15:36 | PDOC ---
History of Present Illness - General Chief Complaint: Vaginal Sxs Stated Complaint: VAG BLEEDING Time Seen by Provider: 05/20/20 13:55 History Source: Patient Exam Limitations: No Limitations - History of Present Illness Initial Comments: 05/20/20 15:17 34-year-old female history of x 4, last April 07, 2020 presents complaining of heavy vaginal bleeding for the past 48 hours with lightheadedness. Reports soaking 1-2 pad every hour. Denies trauma, pelvic cramping, low back pain, fever, chills, chest pain, shortness of breath. Patient currently on day 3 of amoxicillin, was prescribed a 5-day course for "group beta strep pelvic infection". ROS: as above PE: GENERAL: well-appearing, NAD, obese HEAD: NCAT EYES: Pupils equal, round and reactive to light, sclera anicteric, conjunctiva clear ENT: pharynx: no erythema, no exudate, uvula midline NECK: supple CHEST: nontender RESP: clear, no w/r/r CARDIO: rrr, no m/g/r ABD: +BS, soft, nontender, non distended Pelvic: Os closed, no CMT, no clots noted in the vault, approximately 10 cc of blood in the vault, no adnexal tenderness to palpation BACK: no midline spinal ttp, no CVAT EXTREMITIES: Normal range of motion, no edema NEUROLOGICAL: Normal speech, normal gait SKIN: Warm, Dry 05/20/20 17:45 Past History - Medical History Allergies/Adverse Reactions: Allergies Allergy/AdvReac Type Severity Reaction Status Date / Time No Known Allergies Allergy Verified 05/20/20 13:52 Home Medications: Ambulatory Orders 95/Iron Fum/Folic/Dha [ + Dha Combo Pack] 1 each PO DAILY #30 combo..pkg 08/18/19 Acetaminophen [Tylenol .Regular Strength -] 500 mg PO Q4H PRN #30 tablet 10/05 Ferrous Sulfate [Feosol] 325 mg PO DAILY #30 tab 03/21/20 Ibuprofen [Motrin -] 600 mg PO Q4H PRN #30 tablet 03/21/20 Vitamins (Sjr) - 1 tab PO DAILY #30 tablet 03/21/20 oxyCODONE HCL [Roxicodone -] 5 mg PO Q4H PRN #20 tablet MDD 30mg 03/21/20 Asthma: No Cancer: No Cardiac Disorders: No COPD: No Diabetes: No HTN: No Seizures: No Thyroid Disease: No - Surgical History Cardiac Surgery: Yes (x 4) - Reproductive History Is Patient Now?: No - Psycho-Social/Smoking History Smoking History: Never smoked Have you smoked in the past 12 months: No - Substance Abuse Hx (Audit-C & DAST Scrn) How often the patient has a drink containing alcohol: Never Score: In Men: 4 or > Positive; In Women: 3 or > Positive: 0 Screen Result (Pos requires Nsg. Audit-10AR): Negative In the last yr the pt used illegal drug/Rx for NonMed reason: No Score: Yes response is considered Positive: 0 Screen Result (Positive result requires Nsg. DAST-10): Negative *Physical Exam - Vital Signs Last Vital Signs Temp Pulse Resp BP Pulse Ox 98.9 F 91 H 16 149/105 H 99 05/20/20 13:52 05/20/20 13:52 05/20/20 13:52 05/20/20 13:52 05/20/20 13:52 ED Treatment Course - LABORATORY CBC & Chemistry Diagram: 05/20/20 14:10 05/20/20 16:00 - ADDITIONAL ORDERS Additional order review: Laboratory Results 05/20/20 14:30 Urine Color [place] Urine Appearance Clear Urine pH 6.5 D Ur Specific [place] 1.019 Urine Protein 3+ H Urine Glucose (UA) Negative Urine Ketones Negative Urine Blood 3+ H Urine Nitrite Negative Urine Bilirubin Negative Urine Urobilinogen 0.2 Ur Leukocyte Esterase Trace Urine WBC (Auto) 3 Urine RBC (Auto) 24 Urine Casts (Auto) 2 U Epithel Cells (Auto) 8 Urine Bacteria (Auto) 24 Urine HCG, Qual Negative - RADIOLOGY Radiology Studies Ordered: Category Date Time Status TRANSVAGINAL ULTRASOUND US [US] Stat Ultrasound 05/20/20 14:52 Ordered - Medications Given in the ED: ED Medications Discontinued Medications Generic Name Dose Route Start Last Admin Trade Name Freq PRN Reason Stop Dose Admin Acetaminophen 1,000 mg 05/20/20 13:55 05/20/20 14:40 Ofirmev Injection - IVPB 05/20/20 13:56 1,000 mg ONCE ONE Administration Sodium Chloride 1,000 mls @ 1,000 mls/hr 05/20/20 13:56 05/20/20 14:40 Normal Saline - IV 05/20/20 14:55 1,000 mls/hr ASDIR STA Administration Medical Decision Making - Medical Decision Making 05/20/20 17:47 34-year-old female history of x 4, last April 07, 2020 presents complaining of heavy vaginal bleeding for the past 48 hours with lightheadedness. Reports soaking 1-2 pad every hour. Denies trauma, pelvic cramping, low back pain, fever, chills, chest pain, shortness of breath. Patient currently on day 3 of amoxicillin, was prescribed a 5-day course for group beta strep pelvic infection. BP 138/87 discussed ultrasound results with patient: Small uterine fibroid Patient stable for discharge Patient will follow-up with her tip mender this week Understands strict return precaution Discharge - Discharge Information Problems reviewed: Yes Clinical Impression/Diagnosis: Episode of heavy vaginal bleeding Condition: Stable Disposition: HOME - Admission No - Follow up/Referral Referrals: Stanford Kirkland [Primary Care Provider] - - Patient Discharge Instructions Additional Instructions: Today you were found to have a small uterine fibroid on ultrasound Remain hydrated You are advised to follow-up with your tip mender this week If you develop chest pain, shortness of breath, heavy vaginal bleeding please r eturn to the ED immediately - Post Discharge Activity Work/Back to School Note: Back to Work
[2020-05-20 17:12] LABS: BLOOD UREA NITROGEN 10.2 mg/dL (7-18); CALCIUM 8.8 mg/dL (8.5-10.1)
[2020-05-20 17:16] LABS: BILIRUBIN,TOTAL 0.4 mg/dL (0.2-1); TOT PROT 7.9 g/dl (6.4-8.2)
[2020-05-20 17:49] VITALS: BP 138/87; PULSE 74; TEMP 98.2
== END 2020-05-20 18:02 | disposition home or self-care (01) ==
LOC: JER 13:48
PROC: 3E0333Z Introduction of Anti-inflammatory into Peripheral Vein, Percutaneous Approach (ICD-10-PCS; principal; 2020-05-20)
PROC: 3E0337Z Introduction of Electrolytic and Water Balance Substance into Peripheral Vein, Percutaneous Approach (ICD-10-PCS; 2020-05-20)
DX: N92.0 Excessive and frequent menstruation with regular cycle (principal)
CPT/HCPCS: 36415; 76830-TC; 80053; 81003; 84703; 85025; 87070; 87086; 87186; 87205; 99284-25; J0131

== ENCOUNTER 2022-04-02 13:46 | Emergency (ER) | payer OTHER ==
[2022-04-02 14:07] VITALS: BP 126/85; PULSE 69; RESP 18; TEMP 98.3; BMI 35.7
[2022-04-02 15:33] LABS: PH,URINE 5.5 (5.0-8.0); URINE APPEARANCE CLEAR; URINE BILIRUBIN NEGATIVE (NEGATIVE); URINE COLOR YELLOW; URINE GLUCOSE (UA) NEGATIVE (NEGATIVE); URINE KETONE TRACE (NEGATIVE); URINE LEUK ESTERASE NEGATIVE (NEGATIVE); URINE NITRITE NEGATIVE (NEGATIVE); URINE PROTEIN NEGATIVE (NEGATIVE); URINE UROBILINOGEN 0.2 mg/dL (0.2-1.0)
[2022-04-02 15:34] LABS: HCG,QUALITATIVE URINE Negative
== END 2022-04-02 16:50 | disposition left against medical advice (07) ==
LOC: JER 13:46
DX: R10.30 Lower abdominal pain, unspecified (principal)
CPT/HCPCS: 81003; 84703; 87086; 99283-25

== ENCOUNTER 2023-01-24 09:33 | Emergency (ER) | payer OTHER ==
[2023-01-24 09:56] VITALS: BP 130/84; PULSE 82; RESP 18; TEMP 98.6; BMI 37.8
[2023-01-24] MEDS ORDERED: LIDOCAINE 5% TOPICAL PATCH TP ONE (10:27)
[2023-01-24] MEDS ORDERED: KETOROLAC TROMETHAMINE 30 MG/1 ML VIAL IM ONE (10:27)
[2023-01-24] MEDS ORDERED: KETOROLAC TROMETHAMINE 30 MG/1 ML VIAL ONE (10:29)
[2023-01-24] MEDS ORDERED: LIDOCAINE 5% TOPICAL PATCH ONE (10:29)
== END 2023-01-24 11:29 | disposition home or self-care (01) ==
LOC: JER 09:33 → JERFT 09:33
PROC: 3E0233Z Introduction of Anti-inflammatory into Muscle, Percutaneous Approach (ICD-10-PCS; principal; 2023-01-24)
DX: S46.911A Strain of unspecified muscle, fascia and tendon at shoulder and upper arm level, right arm, initial encounter (principal); X50.0XXA Overexertion from strenuous movement or load, initial encounter
CPT/HCPCS: 73030-TC-RT-FY; 99284-25

== ENCOUNTER 2023-09-27 11:34 | Emergency (ER) | payer OTHER ==
[2023-09-27 11:49] VITALS: BP 128/83; PULSE 81; RESP 18; TEMP 98.7; BMI 38.9
[2023-09-27] MEDS: SODIUM CHLORIDE FOR INHALATION 3 ML VIAL.NEB IH ONE (13:16)
== END 2023-09-27 14:38 | disposition home or self-care (01) ==
LOC: JERFT 11:34
DX: R09.81 Nasal congestion (principal); J06.9 Acute upper respiratory infection, unspecified; Z20.822 Contact with and (suspected) exposure to COVID-19
CPT/HCPCS: 0241U-QW; 99283-25